=== PATIENT | female | born 1965 | race Caucasian/White ===

== ENCOUNTER 2021-03-14 12:02 | Emergency (ER) | payer BC ==
[~2021-03-14] VITALS: Ht 182.9 cm; Wt 63.0 kg
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
[2021-03-14] MEDS ORDERED: ketorolac trometh. 30mg/ml inj. IM ONE (19:25)
[2021-03-14] MEDS ORDERED: ketorolac tromethamine 15mg/ml inj. IM ONE (19:25)
[2021-03-14] MEDS ORDERED: morphine 4 MG/ML inj SYRINge IM ONE (19:25)
[2021-03-14] MEDS ORDERED: LORazepam 2 mg/ml vial IM ONE (20:10)
[2021-03-14] MEDS ORDERED: HYDR-3965 PO (20:54)
[2021-03-14] MEDS ORDERED: ONDA4TAB6 PO (20:54)
[2021-03-14 21:11] VITALS: BP 149/89
== END 2021-03-14 21:07 | disposition home or self-care (01) ==
LOC: ER 12:03
DX: S22.32XA Fracture of one rib, left side, initial encounter for closed fracture (principal); R07.89 Other chest pain; R06.02 Shortness of breath; Z79.899 Other long term (current) drug therapy; X58.XXXA Exposure to other specified factors, initial encounter; Y93.89 Activity, other specified; Y92.89 Other specified places as the place of occurrence of the external cause; Y99.8 Other external cause status
CPT/HCPCS: 71045; 71250; 93005; 96372; 99284; J1885; J2060; J2270